=== PATIENT | female | born 2000 | race Caucasian/White ===

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

== ENCOUNTER 2022-02-05 14:07 | Outpatient (REF) | payer BC, SELFPAY ==
--- NOTE | 2022-02-05 11:45 | PAPFT_PTH ---
PATIENT: Jean Sung LOC: [facility] U#:[id number] AGE/SX: 22/F ROOM: RE02/05/[address]: Kylie Matos MD : 2000 BED: DIS: 02/05/2022 SPEC #: [id number] RECD: 02/05/22 17:00 STATUS: MARYELLEN DIPTI #: [id number] JOSHUA: 02/05/22 11:[address]: Kylie Matos DEPT: [facility] Cytology RECD BY: Tracey Allred ENTERED: 02/05/22 17:00 SP TYPE: PAPFT OT DR: ZACKARY Zacarias Tissues: 1 - CX/ENDOCX FOR PAP SMEARS Procedures: PAP THIN PREP/[facility] Screening Comments: [id number]
== END 2022-02-05 14:08 | disposition home or self-care (01) ==
LOC: LBN 14:07
PROVIDERS: PCP Nurse Practitioner Pediatrics; Visit Provider Obstetrics & Gynecology
DX: Z12.4 Encounter for screening for malignant neoplasm of cervix (principal); R87.612 Low grade squamous intraepithelial lesion on cytologic smear of cervix (LGSIL)
CPT/HCPCS: 88142

== ENCOUNTER 2024-09-29 13:54 | Outpatient (REF) | payer BC, SELFPAY ==
--- NOTE | 2024-09-29 13:45 | PAPFT_PTH ---
PATIENT: Jean Sung LOC: [facility] U#:[id number] AGE/SX: 24/F ROOM: RE09/29/[address]: Kylie Matos MD : 2000 BED: DIS: 09/29/2024 SPEC #: [id number] RECD: 09/29/24 18:08 STATUS: MARYELLEN REDick #: [id number] JOSHUA: 09/29/24 13:[address]: Kylie Matos DEPT: [facility] Cytology RECD BY: Tracey Allred ENTERED: 09/29/24 18:08 SP TYPE: PAPFT OTHR DR: Unknown,Unknown Tissues: 1 - CX/ENDOCX FOR PAP SMEARS Procedures: PAP THIN PREP/[facility] Screening Comments: [id number] (CHLAMYDIA/GC)
[2024-09-30 11:01] LABS: Chlamydia Result Negative (Negative); GC Result Negative (Negative)
== END 2024-09-29 13:55 | disposition home or self-care (01) ==
LOC: LBN 13:54
PROVIDERS: Visit Provider Obstetrics & Gynecology
DX: Z01.419 Encounter for gynecological examination (general) (routine) without abnormal findings (principal)
CPT/HCPCS: 87491; 87591; 88142